=== PATIENT | female | born 1985 | race Caucasian/White ===

== ENCOUNTER 2019-03-26 12:21 | Emergency (ER) | payer OTHER, SELFPAY ==
[2019-03-26 12:26] VITALS: BP 135/71; PULSE 124; RESP 28; TEMP 37.7; O2SAT 100
--- NOTE | 2019-03-26 12:37 | ED.GENADUL_ITS ---
Discharge Plan Disposition Patient Disposition: HOME Condition: Good Discharge Details Chief Complaint: RespSymp Clinical Impression: Pneumonia Primary Care Provider: None,None ED Provider: Izzy Tyler Home Meds and New Rx's Prescriptions: New doxycycline hyclate 100 mg capsule 100 mg PO BID Qty: 10 RF: 0 benzonatate [Tessalon Perles] 100 mg capsule 100 mg PO TID PRN (Reason: cough) Qty: 10 RF: 0 Continued Day-Nite Severe Cold-Flu 6.25-5-10-325 mg (nt) Tablets, Sequential 1 tab PO PRN PRNRF: 0 Discharge Instructions Instructions: Pneumonia (ED) Additional Instructions: Encourage hydration. Tylenol and ibuprofen as needed for discomfort. Please take the doxycycline as prescribed. Even if symptoms improve, please take the entire course. Tessalon Perles prescribed to help with symptomatic management, this will help with your cough. If you develop difficulty breathing, shortness of breath or other new/worsening symptoms please seek care urgently once again. Otherwise, care management will be contacting you regarding establishing primary care. I have asked that you be reevaluated next week. Medical Decision Making Patient is a 33 year old female presenting today with c/c of cough, fevers, congestion, sore throat. States that sore throat is only with cough. State that she first became ill 6 days ago and states that this has been increasing over recent days. HAs had fevers x 2 days. Cough primarily dry. No GI upset. Finishing menses. Denies rash. No SOB. Denies CP. On exam, she appears fatigued, coughing frequently. Initially, patient tachycardic at 124, slower on auscultation. Sounds slower than this on exam. Patient was coughing violently when initial tachycardia was noted. Crackles in the LLL, exam otherwise benign. Plan for tylenol and ibuprofen for discomfort and low grade fever. Will obtain cxr. Hydrating orally. CXR reviewed by radiologist: FINDINGS: There is a right convex thoracic scoliosis. Heart is not enlarged. Lungs are clear. No pleural effusion. IMPRESSION: No evidence of acute process. Discussed these findings with the patient. Despite the normal chest x-ray, I am concerned regarding the patient's increasing cough, fevers as well as the crackles heard on auscultation. We will begin the patient on doxycycline for pneumonia. She is given strict return precautions. Advise follow-up with primary care in 1 week if not completely improved. Patient does not have a l ocal primary care, Ney according to help establish is 8 and prompt follow- up. All of her questions and concerns were addressed and she is in agreement this plan. The time of discharge, patient's temperature down to 36.7 ?C, heart rate 100 bpm. Feeling much improved. HPI General Mode of arrival: ambulatory . Date/Time Provider Initiated Documentation: 03/26/19 12:27 . Limitations to Documentation: no limitations . Information obtained by: patient and RN notes reviewed . History of Present Illness 33 year old F presents to the emergency department with the chief complaint of cough, sore throat, cough, described as moderate, with intensity rated at 4. Quality is described as aching, and is localized to the mouth. Patient reports no radiation. Patient started experiencing this day(s) (6) and it has been constant. No relieving factors improve symptom(s), No exacerbating factors reported . Patient notes cough, fever/chills (started over the past 2 days) and nausea/vomiting (endorses nausea with coughing fits); denies chest pain, diaphoresis, loss of appetite, rash, shortness of breath and syncope. Patient did receive the following treatments prior to arrival, none Related Data Home Medications Medication Instructions Recorded Confirmed Day-Nite Severe Cold-Flu 1 tab PO PRN PRN 03/26/19 03/26/19 benzonatate [Tessalon Perles] 100 mg PO TID PRN #10 cap 03/26/19 doxycycline hyclate 100 mg PO BID #10 cap 03/26/19 Previous Rx's Medication Instructions Recorded benzonatate [Tessalon Perles] 100 mg PO TID PRN #10 cap 03/26/19 doxycycline hyclate 100 mg PO BID #10 cap 03/26/19 Allergies Allergy/AdvReac Type Severity Reaction Status Date / Time No Known Allergies Allergy Unverified 03/26/19 12:30 General Stated Complaint: RespSymp SHAHZAD: 3 Review of Systems Constitutional Constitutional: Reports as per HPI, Reports chills, Reports fatigue, Reports fever(s), Denies headache(s) and Denies poor appetite Eyes Eyes: Reports as per HPI, Denies eye discharge and Denies irritation ENT Ears, Nose, Mouth, and Throat: Reports as per HPI and Denies headache(s) Cardiovascular Cardiovascular: Reports as per HPI, Denies chest pain and Denies dyspnea Respiratory Respiratory: Reports as per HPI and Denies dyspnea Gastrointestinal Gastrointestinal: Reports as per HPI, Denies abdominal pain, Denies change in bowel habits, Denies nausea and Denies vomiting Integumentary/Breasts Skin/Breast: Reports as per HPI and Denies rash Neurologic Neurologic: Reports as per HPI and Denies headache(s) Endocrine Endocrine: Reports fatigue [facility] Medical History No significant past medical history (Acute) Social History Smoking/Tobacco Use Status: Never Alcohol Intake: current Alcohol Intake frequency: a few times a month Alcohol type: wine Drug use: Never Substance use type: does not use Do you feel safe at home: Yes Do you feel safe in your relationship?: Yes Exam Const General: cooperative, not healthy appearing (appears fatigued, coughing frequently), comfortable, no acute distress, well developed and well groomed Nutritional Appearance: average body habitus and well nourished Orientation: alert and awake [facility] Head: normal to inspection, normocephalic and atraumatic Ears: hearing grossly normal bilaterally, external ears normal and TM's normal bilaterally General nose exam: external nose normal and nares normal Face and sinus: normal facial exam, sinuses nontender and face symmetric Mouth: oral mucosae normal, lip normal, tongue normal, oropharynx normal and mo ist mucous membranes Teeth and gingiva: dentition normal Throat: posterior oropharynx normal, tonsils normal and uvula midline Eyes General: appearance normal, both eyes and all related structures Neck Neck: normal visual inspection, full ROM, no lymphadenopathy and no meningeal signs Resp Effort & Inspection: normal respiratory effort, able to speak in complete sentences and no respiratory distress Auscultation: crackles (crackles LLL), no rales, no rhonchi and no wheezes Cardio Rate: regular rate Rhythm: regular rhythm Heart Sounds: S1 normal and S2 normal Skin General skin exam: no rashes or lesions noted Neuro General: alert and awake Cognition: normal cognition Speech: speech normal Gait: normal gait Psych Appearance: grossly normal and well kempt Mental Status: mental status grossly normal Speech and Movement: speech and movement normal Course Vital Signs Vital signs: Vital Signs Temperature 37.7 C H 03/26/19 12:26 Pulse 124 H 03/26/19 12:26 Respiratory Rate 28 H 03/26/19 12:26 Blood Pressure 135/71 03/26/19 12:26 Pulse Oximetry 100 03/26/19 12:26 Temperature 37.7 C H 03/26/19 12:26 Temperature Source Oral 03/26/19 12:26 Pulse 124 H 03/26/19 12:26 Respiratory Rate 28 H 03/26/19 12:26 Respiratory Effort Non-Labored 03/26/19 12:32 Blood Pressure 135/71 03/26/19 12:26 Blood Pressure Position Sitting 03/26/19 12:26 Pulse Oximetry 100 03/26/19 12:26 Oxygen Delivery Method Room Air 03/26/19 12:26 Oxygen Flow Rate 0 03/26/19 12:26 Pain Level 4 03/26/19 12:26 Comment 03/26/19 12:26
[2019-03-26] MEDS: Ibuprofen 600 MG TAB PO (12:47)
[2019-03-26] MEDS: Acetaminophen 500 MG TAB 1000 MG PO (12:47)
--- NOTE | 2019-03-26 12:58 | DI.RAD_ITS ---
EXAM: XR CHEST 2V PA LATERAL CLINICAL HISTORY: cough, crackles LLL TECHNIQUE: COMPARISON: No exams were available for comparison FINDINGS: There is a right convex thoracic scoliosis. Heart is not enlarged. Lungs are clear. No pleural eff usion. IMPRESSION: No evidence of acute process.
[2019-03-26 13:24] VITALS: BP 125/72; PULSE 100; RESP 16; TEMP 38.1; O2SAT 97
[2019-03-26 14:05] VITALS: BP 125/72; PULSE 100; RESP 16; TEMP 38.1; O2SAT 97
== END 2019-03-26 14:06 | disposition home or self-care (01) ==
PROVIDERS: Emergency Provider Physician Assistant
DX: J18.9 Pneumonia, unspecified organism (principal)
CPT/HCPCS: 99284; 71046; 99283